=== PATIENT | female | born 1990 | race African-American/Black ===

== ENCOUNTER 2017-10-06 20:38 | Emergency (ER) | payer MEDICAID ==
[~2017-10-06] VITALS: Ht 165.1 cm; Wt 69.0 kg
[2017-10-06] MEDS ORDERED: IBUPROFEN 600MG TABLET PO ONE (22:00)
[2017-10-06 22:45] VITALS: BP 133/74
== END 2017-10-06 23:03 | disposition home or self-care (01) ==
LOC: ER 22:56
DX: R51 Headache (principal); F17.200 Nicotine dependence, unspecified, uncomplicated; I10 Essential (primary) hypertension
CPT/HCPCS: 81025; 99283

== ENCOUNTER 2017-10-06 23:27 | Emergency (ER) | payer MEDICAID ==
[~2017-10-06] VITALS: Ht 165.1 cm; Wt 69.0 kg
[2017-10-06 23:54] VITALS: BP 159/93
== END 2017-10-07 00:45 | disposition left against medical advice (07) ==
LOC: ER 23:27
DX: Z53.21 Procedure and treatment not carried out due to patient leaving prior to being seen by health care provider (principal)